=== PATIENT | female | born 1985 | race Caucasian/White ===

== ENCOUNTER 2016-12-31 13:43 | Emergency (ER) | payer OTHER ==
[~2016-12-31] VITALS: Ht 160 cm; Wt 68.0 kg
[~2016-12-31 13:43] MED LIST: PRENTAB26 PO
[2016-12-31 13:58] VITALS: TEMP 36.9; Ht 160 cm; Wt 68.0 kg
[2016-12-31] MEDS ORDERED: ONDANSETRON INJ 2 MG/ML 2 ML VIAL IV STA (16:40)
[2016-12-31] MEDS ORDERED: KETOROLAC TROMETHAMINE 30 MG/ML VIAL IV STA (16:40)
[2016-12-31] MEDS ORDERED: SODIUM CHLORIDE 0.9% 1000ML 1,000 ML IV STA (16:40)
[2016-12-31] MEDS ORDERED: FENTANYL CITRATE INJ 50 MCG/1 ML 2 ML VIAL IV PRN (16:45)
[2016-12-31] MEDS ORDERED: OPTIRAY 320 IV PRN (16:45)
[2016-12-31] MEDS ORDERED: BCPILLS PO (17:10)
[2016-12-31 17:31] LABS: BASO % 0.4 %; BASO ABS # 0.02 K/uL (0-0.2); COMPLETE YES; EOS % 0.6 %; HEMATOCRIT 40.9 % (37-47); IG% 0.2 %; LYMPH % 38.8 %; LYMPH ABS # 2.02 K/uL (1.2-3.4); MEAN CELL VOLUME 98.8 fL (80-100); MEAN CORPUSCULAR HEMOGLOBIN 34.1 pg (25-34); MEAN CORPUSCULAR HGB CONC 34.5 g/dl (32-36); MEAN PLATELET VOLUME 10.8 fL (7.4-10.4); MONO % 8.3 %; NEUT % 51.7 %; PLATELET COUNT 239 K/uL (130-400); RED BLOOD COUNT 4.14 M/uL (4.2-5.4); WHITE BLOOD COUNT 5.21 K/uL (4.8-10.8)
[2016-12-31 17:36] LABS: URINE APPEARANCE CLEAR (CLEAR); URINE BILIRUBIN NEG (NEG); URINE COLOR YELLOW; URINE EPITHELIAL CELL AUTO >30 /lpf (0-5); URINE NITRITE NEG (NEG); UROBILINOGEN NEG (NEG); ZZUR CULT IF INDIC CLEAN CATCH YES
[2016-12-31 17:38] LABS: ALT/SGPT 35 U/L (12-78); AST/SGOT 22 U/L (15-37); BLOOD UREA NITROGEN 8 mg/dl (7-18); BUN/CREATININE RATIO 11.7 (10-20); CALCIUM 9.6 mg/dl (8.5-10.1); CARBON DIOXIDE 27 mmol/L (21-32); CHLORIDE 106 mmol/L (98-107); CREATININE 0.71 mg/dl (0.60-1.20); GLUCOSE 94 mg/dl (70-99); POTASSIUM 3.9 mmol/L (3.5-5.1); SODIUM 142 mmol/L (136-145)
[2016-12-31 17:45] LABS: ALKALINE PHOSPHATASE 44 U/L (45-117)
[2016-12-31 17:57] LABS: MANUAL MICROSCOPIC REQUIRED? NO; REVIEW REQ? NO
--- NOTE | 2016-12-31 19:51 | DIAGNOSTIC IMAGING REPORT ---
ABDOMEN AND PELVIS CT WITH IV AND ORAL CONTRAST CT DOSE: 338.78 mGy.cm HISTORY: Hernia ABDOMINAL PAIN/GI TECHNIQUE: Multiaxial CT images of the abdomen and pelvis were performed following the use of intravenous and oral contrast. COMPARISON STUDY: None. FINDINGS: Lung bases are clear. Liver spleen and pancreas are unremarkable. Kidneys enhance uniformly. No evidence for hydronephrosis. Fat-containing periumbilical hernia. No evidence of bowel containment, incarceration, or obstruction. Bowel pattern throughout is nonobstructive. Appendix is unremarkable. Uterus is anteflexed. No evidence for ovarian enlargement area in IMPRESSION: 1. Nonobstructing fat-containing periumbilical hernia. 2. Otherwise negative study Electronically signed by: Talib Hicks M.D. 12/31/2016 7:49 PM Dictated Date/Time: 12/31/2016 7:47 PM
--- NOTE | 2016-12-31 20:49 | EMERGENCY ROOM VISIT NOTE ---
History Report prepared by [place]: Cem Braov Under the Supervision of: Dr. Lex Mckeon D.O. First contact with patient: 16:34 Chief Complaint: ABDOMINAL PAIN Stated Complaint: ABD. PAIN FROM HERNIA Nursing Triage Summary: pt to the ED with c/o mid gastric abd pain that started today no n/v/d no urinary hx umbilical hernia History of Present Illness The patient is a 31 year old female who presents to the Emergency Room with complaints of constant mid abdominal pain beginning several hours prior to arrival. She currently rates her discomfort as an 8/10 in severity. The patient associates a decreased appetite and lower mid abdominal pain that radiates to her right lower quadrant with today's symptoms. She states she has had an umbilical hernia for two years. The patient notes she does some heavy lifting for her job. She states she woke up with soreness at the site of her hernia this morning, and she tried to elevate her legs without relief but it usually relieves her symptoms. The patient notes her abdominal pain worsens with walking. She states she has seen her PCP 2-3 times for similar episodes in the past. The patient notes she currently has her menstrual period. She states she is on control but not on any other medications. 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 Review of Systems See HPI for pertinent positives & negatives. A total of 10 systems reviewed and were otherwise negative. Past Medical & Surgical Medical Problems: (1) No pertinent past medical history Family History Patient reports no known family medical history. Social History Smoking Status: Never Smoker Marital Status: Occupation Status: employed Current/Historical Medications Scheduled Control Pills ( Control Pills), 1 TAB PO DAILY Allergies Coded Allergies: Aspirin (Verified Adverse Reaction, Intermediate, RINGING EARS, 12/29/09) Physical Exam Vital Signs Date Time Temp Pulse Resp B/P Pulse Ox O2 Delivery O2 Flow Rate FiO2 12/31/16 19:19 69 16 119/70 100 Room Air 12/31/16 17:17 95 16 130/77 98 Room Air 12/31/16 13:58 36.9 98 16 135/86 97 Physical Exam CONSTITUTIONAL/VITAL SIGNS: Reviewed / noted above. GENERAL: Non-toxic in appearance. INTEGUMENTARY: Warm, dry, and [place]. HEAD: Normocephalic. EYES: without scleral icterus or trauma. ENT/OROPHARYNX: clear and moist. LYMPHADENOPATHY/NECK: Is supple without lymphadenopathy or meningismus. RESPIRATORY: Lungs clear and equal. CARDIOVASCULAR: Regular rate and rhythm. GI/ABDOMEN: Tenderness to palpation in the right lower abdomen and the area just inferior and lateral to the umbilical region. Soft. No organomegaly or pulsatile mass. No rebound or guarding. Normal bowel sounds. EXTREMITIES: Warm and well perfused. BACK: No CVA tenderness. NEUROLOGICAL: Intact without focal deficits. PSYCHIATRIC: normal affect. MUSCULOSKELETAL: Normally developed with good muscle tone. Medical Decision & Procedures ER Provider Diagnostic Interpretation: CT results as stated below per my review and radiologist interpretation: ABDOMEN AND PELVIS CT WITH IV AND ORAL CONTRAST CT DOSE: 338.78 mGy.cm HISTORY: Hernia ABDOMINAL PAIN/GI TECHNIQUE: Multiaxial CT images of the abdomen and pelvis were performed following the use of intravenous and oral contrast. COMPARISON STUDY: None. FINDINGS: Lung bases are clear. Liver spleen and pancreas are unremarkable. Kidneys enhance uniformly. No evidence for hydronephrosis. Fat-containing periumbilical hernia. No evidence of bowel containment, incarceration, or obstruction. Bowel pattern throughout is nonobstructive. Appendix is unremarkable. Uterus is anteflexed. No evidence for ovarian enlargement area in IMPRESSION: 1. Nonobstructing fat-containing periumbilical hernia. 2. Otherwise negative study Electronically signed by: Talib Hicks M.D. 12/31/2016 7:49 PM Laboratory Results 12/31/16 17:00 Red Blood Count 4.14, Mean Corpuscular Volume 98.8, Mean Corpuscular Hemoglobin 34.1, Mean Corpuscular Hemoglobin Concent 34.5, Mean Platelet Volume 10.8, Neutrophils (%) (Auto) 51.7, Lymphocytes (%) (Auto) 38.8, Monocytes (%) (Auto) 8.3, Eosinophils (%) (Auto) 0.6, Basophils (%) (Auto) 0.4, Neutrophils # (Auto) 2.70, Lymphocytes # (Auto) 2.02, Monocytes # (Auto) 0.43, Eosinophils # (Auto) 0.03, Basophils # (Auto) 0.02 12/31/16 17:00 Test 12/31/16 17:00 White Blood Count 5.21 K/uL (4.8-10.8) Red Blood Count 4.14 M/uL (4.2-5.4) Hemoglobin 14.1 g/dL (12.0-16.0) Hematocrit 40.9 % (37-47) Mean Corpuscular Volume 98.8 fL (80-100) Mean Corpuscular Hemoglobin 34.1 pg (25-34) Mean Corpuscular Hemoglobin Concent 34.5 g/dl (32-36) Platelet Count 239 K/uL (130-400) Mean Platelet Volume 10.8 fL (7.4-10.4) Neutrophils (%) (Auto) 51.7 % Lymphocytes (%) (Auto) 38.8 % Monocytes (%) (Auto) 8.3 % Eosinophils (%) (Auto) 0.6 % Basophils (%) (Auto) 0.4 % Neutrophils # (Auto) 2.70 K/uL (1.4-6.5) Lymphocytes # (Auto) 2.02 K/uL (1.2-3.4) Monocytes # (Auto) 0.43 K/uL (0.11-0.59) Eosinophils # (Auto) 0.03 K/uL (0-0.5) Basophils # (Auto) 0.02 K/uL (0-0.2) RDW Standard Deviation 44.5 fL (36.4-46.3) RDW Coefficient of Variation 12.2 % (11.5-14.5) Immature Granulocyte % (Auto) 0.2 % Immature Granulocyte # (Auto) 0.01 K/uL (0.00-0.02) Urine Color YELLOW Urine Appearance CLEAR (CLEAR) Urine pH 7.0 (4.5-7.5) Urine Specific [place] 1.010 (1.000-1.030) Urine Protein NEG (NEG) Urine Glucose (UA) NEG (NEG) Urine Ketones NEG (NEG) Urine Occult Blood 2+ (NEG) Urine Nitrite NEG (NEG) Urine Bilirubin NEG (NEG) Urine Urobilinogen NEG (NEG) Urine Leukocyte Esterase NEG (NEG) Urine WBC (Auto) 1-5 /hpf (0-5) Urine RBC (Auto) 10-30 /hpf (0-4) Urine Hyaline Casts (Auto) 1-5 /lpf (0-5) Urine Epithelial Cells (Auto) >30 /lpf (0-5) Urine Bacteria (Auto) 1+ (NEG) Urine Test NEG (NEG) Anion Gap 9.0 mmol/L (3-11) Est Creatinine Clear Calc Drug Dose 106.3 ml/min Estimated GFR () 131.5 Estimated GFR (Non- 113.5 BUN/Creatinine Ratio 11.7 (10-20) Calcium Level 9.6 mg/dl (8.5-10.1) Total Bilirubin 0.3 mg/dl (0.2-1) Direct Bilirubin < 0.1 mg/dl (0-0.2) Aspartate Amino Transf (AST/SGOT) 22 U/L (15-37) Alanine Aminotransferase (ALT/SGPT) 35 U/L (12-78) Alkaline Phosphatase 44 U/L (45-117) Total Protein 7.6 gm/dl (6.4-8.2) Albumin 4.3 gm/dl (3.4-5.0) Lipase 136 U/L (73-393) Laboratory results as stated above per my review. Medications Administered Medications (Trade) Dose Ordered Sig/Ana Lilia Route Start Time Stop Time Status Last Admin Dose Admin Sodium Chloride (Nss 1000ml) 1,000 ml @ 999 mls/hr Q1H1M STAT IV 12/31/16 16:40 12/31/16 17:40 DC 12/31/16 17:08 999 MLS/HR Ondansetron HCl (Zofran Inj) 4 mg NOW STAT IV 12/31/16 16:40 12/31/16 16:42 DC 12/31/16 17:08 4 MG Fentanyl Citrate (Fentanyl Inj) 100 mcg Q1H PRN IV 12/31/16 16:45 01/14/17 16:44 12/31/16 19:53 100 MCG Ketorolac Tromethamine (Toradol Inj) 30 mg NOW STAT IV 12/31/16 16:40 12/31/16 16:42 DC 12/31/16 17:08 30 MG ED Course 1636: Previous medical records were reviewed. The patient was evaluated in room B12A. A complete history and physical examination was performed. 1640: Ordered Toradol Inj 30 mg IV, Zofran Inj 4 mg IV, Sodium Chloride 1,000 ml @ 999 mls/hr IV. 1645: Ordered Fentanyl Inj 100 mcg IV. 2040: On reevaluation, the patient is doing well. I discussed the results and findings with the patient. She verbalized agreement of the treatment plan. The patient was discharged home. Medical Decision Differential considered: pancreatitis, hepatitis, or acute cholecystitis, AAA, UTI, pyelonephritis, kidney stones, appendicitis, diverticulitis, shingles, bowel obstruction mesenteric ischemia, intussusception,hernia, ovarian torsion, ruptured ovarian cyst,ectopic , . This is a 31-year-old female who presents to the ED with a chief complaint of of abdominal pain. The patient states that she has a history of umbilical hernia over the past couple of years. She states that she has intermittently had some pain in that area. It usually goes away after short period time. This morning she states that it began to feel sore. Her discomfort is to the right and inferior to the umbilical region. The patient's last menstrual period is now. Exam reveals some tenderness to the right lower quadrant and just right of the umbilical area. No obvious hernias were palpated. CBC and complete metabolic panel normal. Lipase was negative. test is negative. Urine did not show infection. CT scan of the abdomen and pelvis showed a fat-containing. No obstruction. The patient was told the results. She is felt to be stable for discharge per chart was treated with IV Fentanyl and IV Toradol. Impression Primary Impression: Umbilical hernia without obstruction or gangrene Scribe Attestation The scribe's documentation has been prepared under my direction and personally reviewed by me in its entirety. I confirm that the note above accurately reflects all work, treatment, procedures, and medical decision making performed by me. Departure Information Dispostion Home / Self-Care Referrals No Doctor, Assigned (PCP) Fede Montalvo M.D. Forms Call Back Authorization, HOME CARE DOCUMENTATION FORM, IMPORTANT VISIT INFORMATION Patient Instructions My [facility] Additional Instructions Follow-up with Dr. Montalvo, surgery, for further evaluation of your umbilical hernia. Call tomorrow for an appointment. Follow-up with your doctor for further care and evaluation in 1-2 days. Return to the emergency department for worsening or new symptoms or any concerns. You have been examined and treated today on an emergency basis only. This is not a substitute for, or an effort to provide, complete comprehensive medical care. It is impossible to recognize and treat all injuries or illnesses in a single emergency department visit. It is therefore important that you follow up closely with your doctor. Call as soon as possible for an appointment.
[2016-12-31 21:03] VITALS: BP 108/71; PULSE 57; O2SAT 98
[2017-04-15] MEDS ORDERED: HYDR-5688 PO (08:50)
== END 2016-12-31 21:03 | disposition home or self-care (01) ==
LOC: C.EDB 13:50
DX: K42.9 Umbilical hernia without obstruction or gangrene (principal)

== ENCOUNTER → 2017-04-15 | Day surgery (SDC) | payer OTHER ==
[2017-03-27 10:47] VITALS: Ht 160 cm; Wt 63.6 kg
[~2017-04-15] VITALS: Ht 160 cm; Wt 63.6 kg
[~2017-04-15] MED LIST changes: +ATROPINE SULFATE 0.1 MG/ML 5ML SYR IV PRN; +BCPILLS PO; +BUPIVACAINE/EPINEPHRINE 0.5% MPF 1:200,000 30 ML VIAL ONE; +CEFAZOLIN 2000 MG/60 ML D5W IV SCH; +DEXAMETHASONE SOD INJ 4 MG/ML VIAL ONE; +EpHEDrine SULFATE INJ 50 MG/ML AMP IV PRN; +FENTANYL CITRATE INJ 50 MCG/1 ML 2 ML VIAL IV PRN; +FENTANYL CITRATE INJ 50 MCG/1 ML 2 ML VIAL ONE; +HYDR-5688 PO; +HYDROCODONE/ACETAMOPHEN 5/325MG TAB PO PRN; +KETOROLAC TROMETHAMINE 30 MG/ML VIAL ONE; +LACTATED RINGER'S 1000ML 1,000 ML IV SCH; +LIDOCAINE HCL 2% 2 ML VIAL (20MG/ML) ONE; +MIDAZOLAM HCL 1 MG/ML 2ML VIAL ONE; +ONDANSETRON INJ 2 MG/ML 2 ML VIAL IV PRN; +ONDANSETRON INJ 2 MG/ML 2 ML VIAL ONE; -PRENTAB26 PO; +PROPOFOL IV EMULSION 10 MG/ML 20 ML VIAL IV ONE; +SODIUM CHLORIDE 0.9% 1000ML 1,000 ML IV SCH
--- NOTE | 2017-04-15 08:41 | History and Physical ---
History & Physical Date April 15, 2017. Chief Complaint umbilical hernia History of Present Illness The patient is a 31 year old female with complaints of enlarging umbilical hernia with worsening discomfort... Past Medical/Surgical History Medical Problems: (1) No pertinent past medical history Additional History Hepatic Disease: No Endocrine Disorder: No Kidney Disease: No Hypertension: No Heart Disease: No Bleeding Tendencies: No Infectious Diseases: No Allergies Coded Allergies: Aspirin (Verified Adverse Reaction, Intermediate, RINGING EARS, 04/15/17) Home Medications Scheduled Control Pills ( Control Pills), 1 TAB PO QAM Physical Examination Skin: warm/dry Eyes: normal inspection, EOMI Head: normocephalic Neck: supple, no adenopathy Respiratory/Chest: normal breath sounds, no respiratory distress Cardiovascular: regular rate, rhythm Abdomen / GI: normal bowel sounds, + pertinent finding (+ small umbilical hernia. nonreducible) Extremities: normal inspection Neurologic/Psych: alert, oriented x 3 Diagnosis umbilical hernia Plan of Treatment discussed options /risks ( bleeding/infection/infection of mesh requiring explant/dvt/pe etc... answered questions. will proceed with open umbilical hernia repair/poss mesh.
--- NOTE | 2017-04-15 08:52 | Discharge Instructions ---
Discharge Instructions Date of Service April 15, 2017. Admission Reason for Admission: Umbilical Hernia Discharge Discharge Diagnosis / Problem: Umbilical Hernia Discharge Goals Goal(s): Decrease discomfort, Improve function Activity Recommendations Activity Limitations: as noted below Lifting Limitations: no more than 10 pounds Exercise/Sports Limitations: until after follow-up appointment May Resume Sexual Activity: after follow-up appointment Shower/Bathe: tomorrow . Instructions / Follow-Up Instructions / Follow-Up Please follow-up with Dr. Moy in the office in 1-2 weeks. Please call the office at [phone] to make an appointment if you do not have one already. Please call the office with any questions or concerns at [phone]. Current Hospital Diet Patient's current hospital diet: Discharge Diet Recommended Diet: Regular Diet Pending Studies Studies pending at discharge: no Medical Emergencies . Who to Call and When: Medical Emergencies: If at any time you feel your situation is an emergency, please call 911 immediately. . Non-Emergent Contact Non-Emergency issues call your: Primary Care Provider, Surgeon Call Non-Emergent contact if: temperature is above 101.5, your pain is not controlled, wound has increased drainage, wound has increased redness . "Provider Documentation" section prepared by Liz Roberto. . VTE Core Measure Inpt VTE Proph given/why not?: SCD's [place] Drug Monitoring Program Search Results: patient reviewed within database, no issues identified
--- NOTE | 2017-04-15 09:41 | [facility] Operative Report ---
Operative Report Operative Date April 15, 2017. Pre-Operative Diagnosis Umbilical Hernia Post-Operative Diagnosis umbilical hernia with omental incarceration Procedure(s) Performed umbilical hernia repair- no mesh Surgeon Dr Moy Histology Technician Surgeon(s) Colin Roberto PA-C Estimated Blood Loss 5ML Findings small 1 cm hernia defect with omental incarceration Specimens None Anesthesia LMA Complication(s) None Disposition Recovery Room / PACU I attest to the content of the Intraoperative Record and any orders documented therein. Any exceptions are noted below.
[2017-04-15] MEDS: FENTANYL CITRATE INJ 50 MCG/1 ML 2 ML VIAL IV PRN ×4 (09:47→10:05)
--- NOTE | 2017-04-15 10:04 | OPERATIVE REPORT ---
DATE OF OPERATION: 04/15/2017 PREOPERATIVE DIAGNOSIS: Umbilical hernia. POSTOPERATIVE DIAGNOSIS: Same with omental incarceration. PROCEDURE PERFORMED: Open umbilical hernia repair. SURGEON: Dr. Nabil Moy. [employer] TEACHER: Liz Roberto PA-C. ESTIMATED BLOOD LOSS: Approximately 5 mL. COMPLICATIONS: No immediate. ANESTHESIA: General with laryngeal mask airway. DESCRIPTION OF PROCEDURE: After informed consent was obtained, the patient was taken to the operating suite and placed in the supine position. After successful placement of laryngeal mask airway, the abdomen was sterilely prepped and draped in the usual fashion. An infraumbilical incision was made with 15 blade scalpel and carried down through the soft tissue using electrocautery. As we carried this down, we quickly noted a hernia sac. We opened the hernia sac and found some omental incarceration. I took down the hernia sac in its entirety. The hernia itself was below the umbilical stalk and it was therefore able to repair without taking down the umbilical stalk. Once I took down the hernia sac, I was then able to rather easily dunk the incarcerated omentum back into the abdominal cavity. It was not adhesed to the undersurface of the defect. Once I had all the fascial edges freed up, I used a #1 Ethibond in an interrupted [id number] fashion to close the small defect. Because of the size, I opted not to use mesh. We thoroughly irrigated the wound. I closed it with 3-0 Vicryl for deep layers and 4-0 Monocryl for the skin. Marcaine was injected around them for postoperative analgesia and skin glue used as a dressing. The patient was awakened, extubated, and transferred to recovery in stable condition. I attest to the content of the Intraoperative Record and any orders documented therein. Any exceptio ns are noted below.
--- NOTE | 2017-04-15 10:28 | Anesthesia Progress Nt - [facility] ---
Anesthesia Post Op Note Date & Time April 15, 2017 at 10:28 Vital Signs Pain Intensity: 5 Vital Signs Past 12 Hours Date Time Temp Pulse Resp B/P Pulse Ox O2 Delivery O2 Flow Rate FiO2 04/15/17 10:14 36.4 63 15 04/15/17 10:14 64 15 100 04/15/17 10:11 117/61 04/15/17 10:09 64 18 100 04/15/17 10:09 65 18 04/15/17 10:06 107/63 04/15/17 10:04 80 18 04/15/17 10:04 81 18 100 04/15/17 10:01 106/60 04/15/17 09:59 72 18 04/15/17 09:59 73 18 100 04/15/17 09:56 114/55 04/15/17 09:54 70 18 100 04/15/17 09:54 71 18 04/15/17 09:51 110/60 04/15/17 09:49 72 16 04/15/17 09:49 72 16 100 04/15/17 09:46 107/72 04/15/17 09:44 80 27 04/15/17 09:44 78 27 98 04/15/17 09:41 112/61 04/15/17 09:39 37 75 12 114/69 100 Mask 6 04/15/17 07:54 36.7 76 16 112/76 98 Room Air Notes Mental Status: alert / awake / arousable, participated in evaluation Pt Amnestic to Procedure: Yes Nausea / Vomiting: adequately controlled Pain: adequately controlled Airway Patency, RR, SpO2: stable & adequate BP & HR: stable & adequate Hydration State: stable & adequate Anesthetic Complications: no major complications apparent
[2017-04-15 10:37] VITALS: TEMP 37.1
[2017-04-15] MEDS: HYDROCODONE/ACETAMOPHEN 5/325MG TAB PO PRN ×2 (10:43→11:00)
[2017-04-15 11:04] VITALS: BP 113/71; PULSE 62; O2SAT 99
== END | disposition home or self-care (01) ==
LOC: X.SURG 07:38
PROVIDERS: ATTEND Surgery
DX: K42.0 Umbilical hernia with obstruction, without gangrene (principal); Z79.3 Long term (current) use of hormonal contraceptives; Z88.6 Allergy status to analgesic agent

== ENCOUNTER 2020-10-20 14:31 | Inpatient (IN) ==
--- OUTSIDE RECORDS SUMMARY | 2020-10-20 14:36 | External Medical Summary | Continuity of Care Document ---
:1985 Author Name Michael Raines Address Unavailable Unavailable , Care Team Providers Name Role Phone Pardeep HAGER Unavailable [email or web address] Unavailable Unavailable Unavailable Unavailable Assessments Assessed Problems:Umbilical hernia Problems Umbilical hernia (553.1) (K42.9) Allergies and Adverse Reactions Aspirin TABS (Allergy) Reaction: Tinnitu s Medications Norethindrone Acet-Ethinyl Est 1-20 MG-MCG Oral Tablet; TAKE 1 TABLET DAILY. Start: 21-Jan-2017 Refills: 0 Procedures History of Oral Surgery Tooth Extraction [place] Status: Completed Tooth History of Umbilical Hernia Repair Statu s: Completed 15-Apr-2017 0:00 Immunizations Immunizations not documented Family History Grandparent Family history of diabetes mellitus (V18.0) (Z83.3) Status: Active Grandmother Family history of diabetes mellitus (V18.0) (Z83.3) Status: Active Family history of malignant neoplasm of breast (V16.3) (Z80. 3) Status: Active Mother Family history of In good health Status: Active Father Family history of In good health Status: Active Social History - Smoking Status Ex-smoker Plan of Treatment Planned Observations Planned Goals not documented Results No Known Results Results not documented Encounters Appointment; Liz Roberto PA-C 19-May-2017 14:00 Encounter Diagnosis: Problem not documented
[2020-10-20] MEDS ORDERED: PENICILLIN G POTASSIUM 3 MU in DEXTROSE 5% 100 ML IV PRN (15:08)
[2020-10-20] MEDS ORDERED: OXYTOCIN 30 UNITS/500 ML BAG IV PRN ×3 (15:08→21:16)
--- NOTE | 2020-10-20 15:15 | Obstetrical Progress Note ---
Date of Service October 20, 2020 Assessment & Plan Admission and Anticipated Discharge Date Admission Date: October 20, 2020 Subjective Admit Note 35 F P2002 at 38.3 weeks admitted with SROM at 0330 today confirmed in the office. She is GBS positive. FHT Cat 1. Cervix 3/70/- 3/vertex/posterior/moderate. Will admit and start antibiotics. EFW 7.5-8 lbs. Results & Data ([facility]) Vital Signs (Past 12 Hours) Vital Signs Temp Pulse Resp BP 10/20/20 14:42 36.6 C 74 20 132/82
[2020-10-20] MEDS ORDERED: PENICILLIN G POTASSIUM 6 MU in DEXTROSE 5% 250 ML IV ONE (15:30)
[2020-10-20 15:44] LABS: Hematocrit (blood only) 37.2 % (37-47); Mean Corpuscular Hemoglobin 35.8 pg (25-34); Mean Corpuscular Hgb Conc 34.9 g/dL (32-36); Mean Corpuscular Volume 102.5 fL (80-100); Mean Platelet Volume 10.6 fL (7.4-10.4); Platelet Count 219 K/uL (130-400); RDW Coefficient of Variation 12.8 % (11.5-14.5); RDW Standard Deviation 47.7 fL (36.4-46.3); Red Blood Count 3.63 M/uL (4.2-5.4); White Blood Count 10.06 K/uL (4.8-10.8)
[2020-10-20] MEDS: LACTATED RINGER'S 1,000 ML IV PRN ×2 (15:52→19:18)
--- NOTE | 2020-10-20 17:24 | Obstetrical Progress Note ---
Date of Service October 20, 2020 Assessment & Plan Admission and Anticipated Discharge Date Admission Date: October 20, 2020 Physical Exam Genitourinary: Manual OB Exam: + cervical dilation 4 cm, + cervical effacement 80% and + station -2 OB Exam Monitor Tracing: + external FHT monitor used, + external uterine monitor used, + category I and + normal FHT variability Will start Oxytocin to augment contractions EFW 7.5-8lbs planning for epidural Results & Data ([facility]) Vital Signs (Past 12 Hours) Vital Signs Temp Pulse Resp BP 10/20/20 15:51 36.9 C 75 20 129/81 10/20/20 14:42 36.6 C 74 20 132/82
[2020-10-20] MEDS ORDERED: SODIUM CHLORIDE 0.9% INJ 10 ML VIAL ONE (17:27)
[2020-10-20] MEDS ORDERED: BUPIVACAINE 0.25% 30 ML VIAL ONE (17:27)
[2020-10-20] MEDS ORDERED: ePHEDrine sulfate 50 MG/ML AMP ONE (17:27)
[2020-10-20] MEDS ORDERED: fentaNYL citrate 100 MCG/2 ML VIAL ONE (17:27)
[2020-10-20] MEDS ORDERED: fentaNYL 2MCG/ML ROPIVACAINE 1.25MG/ML 100 ML BAG EPI ONE (17:28)
--- NOTE | 2020-10-20 17:35 | Anesthesiology Consultation ---
Date of Service October 20, 2020 Assessment & Plan (1) Encounter for pre-operative examination: Chart Review Chart Review: Patient NOT seen in Pre Admission Testing and Acceptable Risk for Labor Epidural Consults Requested none ASA ASA2 Proposed Anesthesia Anesthesia Type: Labor Epidural Risk / Benefits Reviewed With: PT / POA / Parent / Guardian, Accepts Plan and Informed Consent Obtained History Height/Weight Height: 5 ft 3 in Weight: 84.822 kg Allergies Allergy/AdvReac Type Severity Reaction Status Date / Time aspirin AdvReac Intermediate RINGING Verified 10/20/20 14:47 EARS Medications Home Medications Medication Instructions Recorded Confirmed Last Taken pedi multivit 43-iron fumarate 1 tab PO DAILY 10/20/20 10/20/20 10/20/20 06:00 [Flintstones Complete (iron)] Active Medications Generic Name Dose Route Start Last Admin Trade Name Freq PRN Reason Stop Dose Admin Lactated Ringer's 1,000 mls @ 125 mls/hr 10/20/20 15:08 10/20/20 17:25 Lr IV 10/22/20 15:07 999 mls/hr .Q8H PRN Infusion L&D Protocol Protocol Past Medical History Medical History Dog bite Encounter for repeat administration of rabies vaccination Past Surgical History Surgical History Status post hernia repair Social History Smoking Status: Never smoker Hx Alcohol Use: Yes Hx Substance Use: No Physical Exam Vital Signs Last Vital Signs Temp 36.8 C 10/20/20 17:23 Pulse 76 10/20/20 17:29 Resp 20 10/20/20 17:23 BP 151/82 H 10/20/20 17:23 Pulse Ox 97 10/20/20 17:29 Testing Laboratory Results 10/20/20 15:37
[2020-10-20] MEDS ORDERED: fentaNYL 2MCG/ML ROPIVACAINE 1.25MG/ML 100 ML BAG EPI PRN (18:26)
[2020-10-20] MEDS ORDERED: NALOXONE HCL 0.4 MG/1 ML VIAL/CARP IV PRN (18:26)
[2020-10-20] MEDS ORDERED: ONDANSETRON INJ 2 MG/ML 2 ML VIAL IV PRN (18:26)
[2020-10-20] MEDS ORDERED: NALOXONE HCL 1 MG in SODIUM CHLORIDE 0.9% 1000ML 1,000 ML IV PRN (18:26)
[2020-10-20] MEDS ORDERED: ePHEDrine sulfate 50 MG/ML AMP IV PRN (18:26)
[2020-10-20] MEDS ORDERED: diphenhydrAMINE 50 MG/ML VIAL IV PRN (18:26)
[2020-10-20] MEDS ORDERED: LIDOCAINE HCL 1% 20 ML VIAL ONE (19:15)
--- NOTE | 2020-10-20 19:57 | Obstetrical Progress Note ---
Date of Service October 20, 2020 Assessment & Plan Admission and Anticipated Discharge Date Admission Date: October 20, 2020 Physical Exam Genitourinary: Manual OB Exam: + cervical dilation 6 cm and 7 cm, + cervical effacement 100% and + station -1 OB Exam Monitor Tracing: + external FHT monitor used, + external uterine monitor used, + category I and + normal FHT variability will start Pitocin to augment labor Results & Data ([facility]) Vital Signs (Past 12 Hours) Vital Signs Temp Pulse Resp BP Pulse Ox 10/20/20 19:54 91 H 97 10/20/20 19:49 82 95 10/20/20 19:44 85 95 10/20/20 19:40 85 101/50 L 10/20/20 19:39 80 94 10/20/20 19:38 81 93 10/20/20 19:37 36.8 C 18 10/20/20 19:34 81 96 10/20/20 19:29 84 98 10/20/20 19:26 78 105/51 L 10/20/20 19:24 81 98 10/20/20 19:19 90 98 10/20/20 19:14 101 H 95 10/20/20 19:11 89 106/56 L 10/20/20 19:09 103 H 97 10/20/20 19:07 111 H 94 10/20/20 19:04 107 H 97 10/20/20 19:00 20 10/20/20 18:59 101 H 97 10/20/20 18:55 111 H 97/53 L 10/20/20 18:54 103 H 94 10/20/20 18:49 112 H 96 10/20/20 18:44 90 97 10/20/20 18:40 108 H 20 114/59 L 10/20/20 18:39 95 H 96 10/20/20 18:38 101 H 115/61 10/20/20 18:36 107 H 119/63 10/20/20 18:34 88 128/68 98 10/20/20 18:32 90 128/70 10/20/20 18:30 88 20 121/68 10/20/20 18:29 92 H 96 10/20/20 18:28 100 H 120/67 10/20/20 18:26 93 H 18 117/67 10/20/20 18:24 103 H 102/54 L 97 10/20/20 18:22 106 H 104/55 L 10/20/20 18:20 100 H 126/64 10/20/20 18:19 95 H 98 10/20/20 18:18 90 126/67 10/20/20 18:16 84 133/71 10/20/20 18:15 20 10/20/20 18:14 90 125/68 100 10/20/20 18:09 85 98 10/20/20 18:04 80 98 10/20/20 17:59 84 97 10/20/20 17:54 77 99 10/20/20 17:49 83 98 10/20/20 17:44 73 98 10/20/20 17:39 79 99 10/20/20 17:34 81 98 10/20/20 17:29 76 97 10/20/20 17:24 75 98 10/20/20 17:23 36.8 C 71 20 151/82 H 10/20/20 15:51 36.9 C 75 20 129/81 10/20/20 14:42 36.6 C 74 20 132/82
--- NOTE | 2020-10-20 21:15 | Delivery Summary ---
Vaginal Delivery Summary Date of Service October 20, 2020 Supervising Physician Co-Signing Physician Notes Delivery Note live female over intact perineum AMINTA with delayed cord clamping. Apgars 8/9 weight pending. Cord blood obtained followed by spontaneous delivery of intact placenta, No tears. EBL 100 ml. Final sponge and instrument count are correct. Mom and baby stable.
[2020-10-20] MEDS ORDERED: HYDROCORTISONE ACETATE 25 MG SUPP PR PRN (21:16)
[2020-10-20] MEDS ORDERED: DIPHTHERIA/TETANUS/PERTUSSIS 0.5 ML SYR/VIAL IM ONE (21:16)
[2020-10-20] MEDS ORDERED: BENZOCAINE 20% AER SPR 82.5 GM CAN EXT PRN (21:16)
[2020-10-20] MEDS ORDERED: bisacodyL 10 MG SUPP PR PRN (21:16)
[2020-10-20] MEDS ORDERED: SUPERCREAM 0.870% 15 GM JAR EXT PRN (21:16)
--- NOTE | 2020-10-20 22:09 | Anesthesia Procedure Note ---
Date of Service October 20, 2020 Anesthesia Post Epidural Note Vital Signs Vital Signs: Temp Pulse Resp BP Pulse Ox 37 C 84 18 129/69 94 10/20/20 21:15 10/20/20 21:55 10/20/20 21:45 10/20/20 21:55 10/20/20 21:51 Pain Intensity Bilateral Abdomen: Pain Intensity: 0 Notes Mental Status: alert / awake / arousable and participated in evaluation Nausea / Vomiting: adequately controlled Pain: adequately controlled Airway Patency, RR, SpO2: stable & adequate BP & HR: stable & adequate Hydration State: stable & adequate Neuraxial Anesthesia: was administered and sensory block is resolving Anesthetic Complications: no major complications apparent and Pt Satisfied with anesthetic care Epidural: Removed without complications and With tip intact
[2020-10-20] MEDS: IBUPROFEN 600 MG TAB PO PRN (22:44)
[2020-10-21] MEDS: IBUPROFEN 600 MG TAB PO PRN ×5 (04:27→20:26)
[2020-10-21 06:23] LABS: Hematocrit (blood only) 36.5 % (37-47); Hemoglobin 12.4 g/dL (12.0-16.0); Mean Corpuscular Hemoglobin 34.8 pg (25-34); Mean Corpuscular Volume 102.5 fL (80-100); Mean Platelet Volume 10.8 fL (7.4-10.4); Platelet Count 193 K/uL (130-400); RDW Coefficient of Variation 12.9 % (11.5-14.5); RDW Standard Deviation 48.5 fL (36.4-46.3); Red Blood Count 3.56 M/uL (4.2-5.4); White Blood Count 11.67 K/uL (4.8-10.8)
[2020-10-21] MEDS: ACETAMINOPHEN 325 MG TAB PO PRN ×2 (06:41→15:44)
--- NOTE | 2020-10-21 07:26 | Obstetrical Progress Note ---
Date of Service October 21, 2020 Assessment & Plan Admission and Anticipated Discharge Date Admission Date: October 20, 2020 Subjective Patient is seen and examined. She feels well, no complaints. Desires d/c tonight if possible Ambulating without dizziness Voiding without difficulty Tolerating regular diet with out N&V Bleeding is minimal No fever/ chills/ CP/ SOB/ N&V/ Leg pain Breast feeding without problems Vital Signs Temp Pulse Pulse Resp BP BP Pulse Ox 10/21/20 03:55 36.8 C 77 18 117/74 97 10/21/20 00:35 36.7 C 79 79 20 117/66 117/66 97 10/20/20 23:25 94 H 126/60 10/20/20 23:15 18 10/20/20 23:10 94 H 152/70 H 10/20/20 22:55 88 113/65 10/20/20 22:45 36.9 C 18 10/20/20 22:40 93 H 113/56 L 10/20/20 22:25 88 124/59 L 10/20/20 22:15 18 10/20/20 22:10 90 130/70 10/20/20 21:55 84 129/69 10/20/20 21:51 87 94 10/20/20 21:50 81 95 10/20/20 21:45 93 H 18 96 10/20/20 21:42 99 H 93 10/20/20 21:40 89 121/60 95 10/20/20 21:36 92 H 94 10/20/20 21:35 88 94 10/20/20 21:31 85 130/65 10/20/20 21:30 89 94 10/20/20 21:25 83 118/57 L 94 10/20/20 21:24 83 94 10/20/20 21:19 89 95 10/20/20 21:18 90 94 10/20/20 21:15 37 C 18 94 10/20/20 21:14 91 H 94 10/20/20 21:12 97 H 94 10/20/20 21:10 104 H 128/66 10/20/20 21:09 98 H 97 10/20/20 21:04 103 H 96 10/20/20 20:59 107 H 98 10/20/20 20:56 86 122/74 10/20/20 20:54 80 100 10/20/20 20:49 83 100 10/20/20 20:44 82 100 10/20/20 20:40 108 H 106/59 L 10/20/20 20:39 97 H 92 10/20/20 20:34 104 H 99 10/20/20 20:29 84 98 10/20/20 20:27 80 99/60 L 10/20/20 20:24 109 H 97 10/20/20 20:19 80 98 10/20/20 20:14 89 99 10/20/20 20:12 82 18 110/57 L 10/20/20 20:09 79 99 10/20/20 20:04 84 96 10/20/20 20:01 90 93 10/20/20 19:59 83 95 10/20/20 19:56 88 126/63 10/20/20 19:54 91 H 97 10/20/20 19:49 82 95 10/20/20 19:44 85 95 10/20/20 19:40 85 101/50 L 10/20/20 19:39 80 94 10/20/20 19:38 81 93 10/20/20 19:37 36.8 C 18 10/20/20 19:34 81 96 10/20/20 19:29 84 98 Lab Results 10/20/20 10/21/20 Range/Units 15:37 06:02 WBC 10.06 11.67 H (4.8-10.8) K/uL RBC 3.63 L 3.56 L (4.2-5.4) M/uL Hgb 13.0 12.4 (12.0-16.0) g/dL Hct 37.2 36.5 L (37-47) % MCV 102.5 H 102.5 H (80-100) fL MCH 35.8 H 34.8 H (25-34) pg MCHC 34.9 34.0 (32-36) g/dL RDW Std Deviation 47.7 H 48.5 H (36.4-46.3) fL RDW Coeff of Mildred 12.8 12.9 (11.5-14.5) % Plt Count 219 193 (130-400) K/uL MPV 10.6 H 10.8 H (7.4-10.4) fL PE: General: Alert, orientedx3, NAD Abd: soft, NT, fundus firm, below Umbilicus Perineum intact, Lochia rubra minimal Ext; NT, no edema AP: 35 yo s/p , ppd# 1 VSS Afebrile doing well Continue routine care All questions were answered D/C home tonight if baby will be discharged Results & Data ([facility]) Vital Signs (Past 12 Hours) Vital Signs Temp Pulse Pulse Resp BP BP Pulse Ox 10/21/20 03:55 36.8 C 77 18 117/74 97 10/21/20 00:35 36.7 C 79 79 20 117/66 117/66 97 10/20/20 23:25 94 H 126/60 10/20/20 23:15 18 10/20/20 23:10 94 H 152/70 H 10/20/20 22:55 88 113/65 10/20/20 22:45 36.9 C 18 10/20/20 22:40 93 H 113/56 L 10/20/20 22:25 88 124/59 L 10/20/20 22:15 18 10/20/20 22:10 90 130/70 10/20/20 21:55 84 129/69 10/20/20 21:51 87 94 10/20/20 21:50 81 95 10/20/20 21:45 93 H 18 96 10/20/20 21:42 99 H 93 10/20/20 21:40 89 121/60 95 10/20/20 21:36 92 H 94 10/20/20 21:35 88 94 10/20/20 21:31 85 130/65 10/20/20 21:30 89 94 10/20/20 21:25 83 118/57 L 94 10/20/20 21:24 83 94 10/20/20 21:19 89 95 10/20/20 21:18 90 94 10/20/20 21:15 37 C 18 94 10/20/20 21:14 91 H 94 10/20/20 21:12 97 H 94 10/20/20 21:10 104 H 128/66 10/20/20 21:09 98 H 97 10/20/20 21:04 103 H 96 10/20/20 20:59 107 H 98 10/20/20 20:56 86 122/74 10/20/20 20:54 80 100 10/20/20 20:49 83 100 10/20/20 20:44 82 100 10/20/20 20:40 108 H 106/59 L 10/20/20 20:39 97 H 92 10/20/20 20:34 104 H 99 10/20/20 20:29 84 98 10/20/20 20:27 80 99/60 L 10/20/20 20:24 109 H 97 10/20/20 20:19 80 98 10/20/20 20:14 89 99 10/20/20 20:12 82 18 110/57 L 10/20/20 20:09 79 99 10/20/20 20:04 84 96 10/20/20 20:01 90 93 10/20/20 19:59 83 95 10/20/20 19:56 88 126/63 10/20/20 19:54 91 H 97 10/20/20 19:49 82 95 10/20/20 19:44 85 95 10/20/20 19:40 85 101/50 L 10/20/20 19:39 80 94 10/20/20 19:38 81 93 10/20/20 19:37 36.8 C 18 10/20/20 19:34 81 96 10/20/20 19:29 84 98 10/20/20 19:26 78 105/51 L
[2020-10-21] MEDS ORDERED: FERROUS SULFATE 325 MG TAB PO SCH (08:00)
[2020-10-21] MEDS ORDERED: PRENATAL VITAMIN 1 TAB PO SCH (08:00)
[2020-10-21] MEDS: DOCUSATE SODIUM 100 MG CAP PO SCH ×2 (08:54→20:27)
[2020-10-21] MEDS ORDERED: bisacodyL 5 MG TABEC PO SCH (20:00)
== END 2020-10-21 22:05 | disposition home or self-care (01) | DRG 807 ==
LOC: OPB 14:31 → 4S1 14:34 → 4S2 23:45